=== PATIENT | male | born 1985 | race Caucasian/White ===

== ENCOUNTER 2016-11-02 09:00 | Emergency (ER) | payer MEDICAID ==
[2016-11-02 09:21] VITALS: TEMP 97.9
--- NOTE | 2016-11-02 09:38 | C.PDOC ---
History Of Present Illness 31 year old male presents to the ED with complaints of abdominal pain for " seven years" with pain worsening over the last few days. Patient states he has been seeing his PMD and "specialists." He was given pepcid and glycolax but pain returned months later. Patient notes pain radiates from left side of abdomen to chest. He denies fever, nausea, vomiting, or diarrhea. Time Seen by Provider: 11/02/16 09:38 Chief Complaint (Nursing): Abdominal Pain History Per: Patient History/Exam Limitations: no limitations Onset/Duration Of Symptoms: Persistent (seven years ), Worse Since ("few days" ) Location Of Pain/Discomfort: LUQ, LLQ Radiation Of Pain To:: Chest Quality Of Discomfort: "Pain" Associated Symptoms: denies: Fever, Chills, Nausea, Vomiting, Diarrhea Recent travel outside of the [place] States: No Past Medical History Reviewed: Historical Data, Nursing Documentation, Vital Signs Vital Signs: Last Vital Signs Temp 97.9 F 11/02/16 11:16 Pulse 72 11/02/16 11:16 Resp 20 11/02/16 11:16 BP 103/70 11/02/16 11:16 Pulse Ox 98 11/02/16 16:52 Family History: States: Unknown Family Hx - Social History Hx Tobacco Use: Yes Hx Alcohol Use: No Hx Substance Use: No - Immunization History Hx Tetanus Toxoid Vaccination: No Hx Influenza Vaccination: No Hx Pneumococcal Vaccination: No Review Of Systems Constitutional: Negative for: Fever, Chills Cardiovascular: Negative for: Chest Pain, Palpitations Respiratory: Negative for: Cough, Shortness of Breath Gastrointestinal: Positive for: Abdominal Pain (radiates to chest ). Negative for: Nausea, Vomiting, Diarrhea Physical Exam - Physical Exam Appears: Non-toxic, No Acute Distress Skin: Warm, Dry Head: Atraumatic Eye(s): bilateral: Normal Inspection Oral Mucosa: Moist Neck: Supple Chest: Symmetrical, No Deformity Cardiovascular: Rhythm Regular Respiratory: Normal Breath Sounds, No Rales, No Rhonchi, No Wheezing Gastrointestinal/Abdominal: Soft, No Tenderness, No Distention, No Guarding, No Rebound Neurological/Psych: Oriented x3, Normal Speech, Normal Cognition, Normal Motor, Normal Sensation ED Course And Treatment - Laboratory Results Result Diagrams: 11/02/16 10:15 11/02/16 10:15 ECG: Interpreted By Me, Viewed By Me ECG Rhythm: Sinus Rhythm Rate From EC O2 Sat by Pulse Oximetry: 98 (room air ) - Radiology CXR: Viewed By Me, Read By Radiologist CXR Interpretation: Yes: Other (No definite acute infiltrate. Cardiac silhouette is somewhat prominent may be magnified by technique. Clinically correlate.) Progress Note: EKG,CXR, UA, and blood work was ordered. Patient was given Maalox , Pepcid, Lidocaine 2%, and IV fluids. Disposition - Disposition Referrals: Kamran Walden [Staff Provider] - Disposition: HOME/ ROUTINE Disposition Time: 11:21 Condition: GOOD Additional Instructions: Please follow up with your doctor and also with the GI specialist. Return to the ER for any worsening symptoms or for any other concerns. Prescriptions: Sucralfate [Carafate Oral Susp] 1 gm PO TID #6 dose Instructions: Diet for Ulcers and Gastritis (ED) Forms: General Discharge Instructions, [facility] ([place]) - Clinical Impression Clinical Impression: Abdominal pain - Scribe Statement The provider has reviewed the documentation as recorded by the Scribgreg Quinones All medical record entries made by the Scribe were at my direction and personally dictated by me. I have reviewed the chart and agree that the record accurately reflects my personal performance of the history, physical exam, medical decision making, and the department course for this patient. I have also personally directed, reviewed, and agree with the discharge instructions and disposition.
[2016-11-02] MEDS ORDERED: Aluminum Hydroxide/Magnesium Hydroxide Susp (30 mL) PO STA (09:53)
[2016-11-02] MEDS ORDERED: Aluminum Hydroxide/Magnesium Hydroxide Susp (30 mL) ONE (09:59)
[2016-11-02] MEDS ORDERED: Sodium Chloride 0.9% 1,000 ML ONE (09:59)
[2016-11-02] MEDS ORDERED: Sodium Chloride 0.9% 1,000 ML IV SCH (10:00)
[2016-11-02 10:20] LABS: BASO # 0.1 K/uL (0.0-0.2); EOS # 0.3 K/uL (0.0-0.7); LYMPH # 2.1 K/uL (1.0-4.3); MEAN CORPUSCULAR HEMOGLOBIN 27.9 pg (27.0-31.0); MONO # 0.4 K/uL (0.0-0.8); WHITE BLOOD COUNT 4.6 K/uL (4.8-10.8)
[2016-11-02 10:24] LABS: BASO % 1.2 % (0.0-2.0); EOS % 5.8 % (0.0-4.0); HEMATOCRIT 46.5 % (35.0-51.0); LYMPH % 45.2 % (20.0-40.0); MEAN CELL VOLUME 79.9 fL (80.0-94.0); MEAN CORPUSCULAR HGB CONC 34.9 g/dL (33.0-37.0); MEAN PLATELET VOLUME 7.6 fL (7.2-11.7); MONO % 9.1 % (0.0-10.0); NRBC % 0.4 % (0.0-2.0); RED CELL DISTRIBUTION WIDTH 13.5 % (11.5-14.5)
[2016-11-02 10:29] LABS: URINE BILIRUBIN NEGATIVE (NEGATIVE); URINE BLOOD NEGATIVE (NEGATIVE); URINE COLOR Yellow (YELLOW); URINE GLUCOSE (UA) NORMAL (Normal); URINE KETONE NEGATIVE (NEGATIVE); URINE LEUKOCYTE ESTERASE NEG Leu/uL (Negative); URINE PROTEIN NEGATIVE (NEGATIVE); URINE UROBILINOGEN NORMAL mg/dL (0.2-1.0); WBC URINE < 1 /hpf (0-5)
[2016-11-02 10:32] LABS: ALB/GLOB RATIO 1.2 (1.0-2.1); ALKALINE PHOSPHATASE 73 U/L (38-126); ALT/SGPT 91 U/L (21-72); AST/SGOT 43 U/L (17-59); BILIRUBIN,TOTAL 2.2 mg/dL (0.2-1.3); BLOOD UREA NITROGEN 12 mg/dL (9-20); CALCIUM 9.6 mg/dl (8.6-10.4); CARBON DIOXIDE 22 mmol/L (22-30); CHLORIDE 103 mmol/L (98-107); GFR AFRICAN-AMERICAN > 60; GLUCOSE,RANDOM 97 mg/dL (75-110); POTASSIUM 4.3 mmol/L (3.6-5.2); SODIUM 139 mmol/L (132-148); TOTAL PROTEIN 7.5 g/dL (6.3-8.3)
[2016-11-02 11:17] VITALS: BP 103/70; PULSE 72; RESP 20
--- NOTE | 2016-11-02 11:43 | RAD ---
HISTORY: cp COMPARISON: No prior. FINDINGS: LUNGS: No active pulmonary disease. PLEURA: No significant pleural effusion identified, no pneumothorax apparent. CARDIOVASCULAR: Cardiac silhouette appears somewhat prominent and may be magnified by technique. Clinically correlate. OSSEOUS STRUCTURES: No significant abnormalities. VISUALIZED UPPER ABDOMEN: Normal. OTHER FINDINGS: None. IMPRESSION: No definite acute infiltrate. Cardiac silhouette is somewhat prominent may be magnified by technique. Clinically correlate.
[2016-11-02 16:52] VITALS: O2SAT 98
--- NOTE | 2016-11-04 00:32 | CARD ---
APPROVED REPORT EKG Measurement Heart [id number] <Conclusion> Normal sinus rhythm Low voltage QRS Borderline ECG
== END 2016-11-02 11:21 | disposition home or self-care (01) ==
LOC: C.ER 09:00
DX: R10.12 Left upper quadrant pain (principal)
CPT/HCPCS: 71010; 80053; 81001; 83690; 84484; 85025; 93005; 96374; 99285; J7040

== ENCOUNTER 2017-09-12 11:36 | Emergency (ER) | payer MEDICAID ==
[2017-09-12 11:55] VITALS: BMI 35.4
[2017-09-12 11:57] VITALS: RESP 18; TEMP 98.4
--- NOTE | 2017-09-12 12:25 | C.PDOC ---
History Of Present Illness 32 year old male patient presents to the ER with complaints of CHILDERS on both sides of the head that lasted for 3 days. Patient reports that he took advil yesterday afternoon, which gave him transient relief. (+) nausea. Patient also c /o left dental cavities x 1 yr which have increased in pain recently. Denies visual changes, weakness, neck pain, chest pain, abdominal pain, diplopia, trauma, and fever. 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[employer]) History/Exam Limitations: no limitations Onset/Duration Of Symptoms: Days Current Symptoms Are (Timing): Still Present Quality: Sharp Associated Symptoms: Nausea Past Medical History Reviewed: Historical Data, Nursing Documentation, Vital Signs Vital Signs: Last Vital Signs Temp 98.4 F 09/12/17 11:56 Pulse 70 09/12/17 14:28 Resp 18 09/12/17 14:28 BP 106/73 09/12/17 14:28 Pulse Ox 97 09/12/17 14:28 - Medical History PMH: Gastrointestinal Ulcer Surgical History: Endoscopy Other Surgeries: Colonoscopy Family History: States: Unknown Family Hx - Social History Hx Tobacco Use: Yes Hx Alcohol Use: No Hx Substance Use: No - Immunization History Hx Tetanus Toxoid Vaccination: No Hx Influenza Vaccination: No Hx Pneumococcal Vaccination: No Review Of Systems Except As Marked, All Systems Reviewed And Found Negative. Constitutional: Negative for: Fever, Weakness Eyes: Positive for: Pain (left eye). Negative for: Vision Change Gastrointestinal: Positive for: Nausea. Negative for: Vomiting Physical Exam - Physical Exam Appears: Well, Non-toxic, No Acute Distress Skin: Normal Color, Warm, Dry Head: Atraumatic, Normacephalic, Tenderness (frontal sinus tenderness) Eye(s): bilateral: Normal Inspection, PERRL, EOMI Ear(s): Bilateral: Normal Nose: Normal, No Septal Hematoma Oral Mucosa: Moist Teeth: No Normal Dentition (poor dentition), Caries (multiple caries; tenderness to left maxillary pre molar) Gingiva: No Erythema, No Swelling, Tender (left maxiallary premolar) Throat: Normal, No Erythema, No Exudate Neck: Normal, Normal ROM, Supple Chest: Symmetrical Cardiovascular: Rhythm Regular Respiratory: Normal Breath Sounds, No Accessory Muscle Use Extremity: Normal ROM Neurological/Psych: Oriented x3, Normal Speech, Normal Cognition, Normal Cranial Nerves (2-12 grossly intact), Normal Sensation, No Other (focal deficits ) Gait: Steady ED Course And Treatment O2 Sat by Pulse Oximetry: 96 (RA) Pulse Ox Interpretation: Normal - CT Scan/US head Other Rad Studies (CT/US): Read By Radiologist, Radiology Report Reviewed CT/US Interpretation: No acute intracranial abnormality. Sinus mucosal disease. Progress Note: Impression: 32 year old male patient with headache. Plan: -- CT head w/o contrast. -- IV fluids. -- Toradol. -- Zofran. -- CT of head. Reassess: Patient is resting comfortably, is tolerating PO. Patient has no neurologic deficit, photophobia, rash, fever, or nuchal rigidity. Patient was instructed to follow up with physician/clinic in 1-2 days. Disposition - Disposition Disposition: HOME/ ROUTINE Disposition Time: 13:55 Condition: STABLE Additional Instructions: Follow up with the your doctor and dentist in 1-2 days. Return to ER if symptoms persist or worsen. Prescriptions: Clindamycin [Cleocin] 300 mg PO Q6 #28 cap Naproxen [Naprosyn] 1 tab PO BID PRN #20 tab PRN Reason: Pain Instructions: Dental Pain (DC) Forms: [facility] ([place]otho) - Clinical Impression Clinical Impression: Pain, dental, Headache - PA / INTERNAL COMBUSTION ENGINEER / Resident Statement MD/DO has reviewed & agrees with the documentation as recorded. - Scribe Statement The provider has reviewed the documentation as recorded by the Gil Bhandari Do All medical record entries made by the Scribe were at my direction and personally dictated by me. I have reviewed the chart and agree that the record accurately reflects my personal performance of the history, physical exam, medical decision making, and the department course for this patient. I have also personally directed, reviewed, and agree with the discharge instructions and disposition.
[2017-09-12] MEDS ORDERED: Sodium Chloride 0.9% 1,000 ML IV ONE (12:28)
[2017-09-12] MEDS ORDERED: Sodium Chloride 0.9% 1,000 ML ONE (12:39)
--- NOTE | 2017-09-12 13:40 | CT ---
Date of service: 09/12/2017 PROCEDURE: CT HEAD WITHOUT CONTRAST. HISTORY: Headache. Evaluate for hemorrhage. COMPARISON: None available. TECHNIQUE: Axial computed tomography images were obtained through the head/brain without intravenous contrast. Radiation dose: Total exam DLP = 834 mGy-cm. This CT exam was performed using one or more of the following dose reduction techniques: Automated exposure control, adjustment of the mA and/or kV according to patient size, and/or use of iterative reconstruction technique. FINDINGS: HEMORRHAGE: No intracranial hemorrhage. BRAIN: No mass effect or edema. No atrophy or chronic microvascular ischemic changes. VENTRICLES: Unremarkable. No hydrocephalus. CALVARIUM: Unremarkable. PARANASAL SINUSES: Mucosal thickening of the ethmoid air cells. MASTOID AIR CELLS: Unremarkable as visualized. No inflammatory changes. OTHER FINDINGS: None. IMPRESSION: No acute intracranial abnormality. If symptoms persists, consider correlation with MRI. Sinus mucosal disease.
[2017-09-12 14:30] VITALS: BP 106/73; PULSE 70
[2017-09-12 18:59] VITALS: O2SAT 96
== END 2017-09-12 14:30 | disposition home or self-care (01) ==
LOC: C.ER 11:36
DX: R51 Headache (principal); K08.89 Other specified disorders of teeth and supporting structures; Z72.0 Tobacco use
CPT/HCPCS: 70450; 96361; 96374; 96375; 99284; J1885; J2405; J7030

== ENCOUNTER 2018-04-17 11:58 | Emergency (ER) | payer MEDICAID ==
[2018-04-17 11:58] VITALS: BMI 35.4
[2018-04-17 12:03] VITALS: RESP 20
[2018-04-17] MEDS ORDERED: Albuterol-Ipratrop 3 mg / 0.5 (3 ml) UD IH STA (13:08)
--- NOTE | 2018-04-17 13:13 | RAD ---
Date of service: 04/17/2018 HISTORY: cough, bloody sputum COMPARISON: Comparison is made with 11/02/2016 TECHNIQUE: Chest PA and lateral FINDINGS: LUNGS: No evidence of new infiltrate or consolidation in the lungs. Suboptimal study due to the patient's body habitus. PLEURA: No significant pleural effusion identified. No pneumothorax apparent. CARDIOVASCULAR: No aortic atherosclerotic calcification present. Normal cardiac size. No pulmonary vascular congestion. OSSEOUS STRUCTURES: No significant abnormalities. VISUALIZED UPPER ABDOMEN: Normal. OTHER FINDINGS: None. IMPRESSION: No definite radiographic evidence of pneumonia.
[2018-04-17] MEDS ORDERED: Albuterol-Ipratrop 3 mg / 0.5 (3 ml) UD ONE (13:17)
--- NOTE | 2018-04-17 13:48 | C.PDOC ---
History Of Present Illness 33 year old male presents to ED with complaint of cough and mucus that is yellow and blood tinged in nature for the past 2 days. Patient reports experiencing chest discomfort when he coughs. He denies fever, numbness,weakness, and SOB. Time Seen by Provider: 04/17/18 12:17 Chief Complaint (Nursing): Cough, Cold, Congestion History Per: Patient History/Exam Limitations: no limitations Onset/Duration Of Symptoms: Days (2) Current Symptoms Are (Timing): Still Present Associated Symptoms: Cough, Sputum (yellow and blood-tinged mucus), Other (chest discomfort). denies: Fever Past Medical History Reviewed: Historical Data, Nursing Documentation, Vital Signs Vital Signs: Last Vital Signs Temp 97.8 F 04/17/18 12:00 Pulse 71 04/17/18 12:00 Resp 20 04/17/18 12:00 BP 105/66 04/17/18 12:00 Pulse Ox 99 04/17/18 12:00 - Medical History PMH: Gastrointestinal Ulcer Surgical History: Endoscopy Family History: States: Unknown Family Hx - Social History Hx Tobacco Use: Yes Hx Alcohol Use: No Hx Substance Use: No - Immunization History Hx Tetanus Toxoid Vaccination: No Hx Influenza Vaccination: No Hx Pneumococcal Vaccination: No Review Of Systems Except As Marked, All Systems Reviewed And Found Negative. Constitutional: Negative for: Fever, Chills, Weakness ENT: Positive for: Other (yellow and blood tinged mucus) Cardiovascular: Positive for: Other (chest discomfort when coughing). Negative for: Palpitations Respiratory: Positive for: Cough. Negative for: Shortness of Breath Gastrointestinal: Negative for: Nausea, Vomiting, Abdominal Pain Neurological: Negative for: Weakness, Numbness, Dizziness Physical Exam - Physical Exam Appears: Well, Non-toxic, No Acute Distress Skin: Normal Color, Warm, Dry, No Rash Head: Atraumatic, Normacephalic Eye(s): bilateral: Normal Inspection, PERRL, EOMI Ear(s): Bilateral: Normal Nose: Normal, No Discharge Oral Mucosa: Moist Throat: No Erythema, No Exudate Neck: Normal ROM, Supple Chest: Symmetrical, No Deformity Cardiovascular: Rhythm Regular, No Friction Rub, No Murmur Respiratory: Normal Breath Sounds, No Accessory Muscle Use, No Rales, No Rhonchi, No Stridor, No Wheezing Gastrointestinal/Abdominal: Soft, No Tenderness Back: Normal Inspection, No CVA Tenderness Extremity: No Tenderness, Capillary Refill (<2 seconds), No Swelling Extremity: Bilateral: Atraumatic, Normal Color And Temperature Pulses: Left Radial: Normal, Right Radial: Normal Neurological/Psych: Oriented x3, Normal Speech, Normal Cognition, Normal Motor Gait: Steady ED Course And Treatment ECG: Interpreted By Me, Viewed By Me ECG Rhythm: Sinus Rhythm ECG Interpretation: Normal Rate From EC O2 Sat by Pulse Oximetry: 99 - Other Rad CXR X-Ray: Interpreted by Me, Viewed By Me Interpretation: Accession No. : [id number]. Patient Name / ID : DORYS SAUL / [id number]. Exam Date : 04/17/2018 12:40:56 ( Approved ). Study Comment : Sex / Age : M / 33Y. Creator : Mart Brian MD. Dictator : Mart Brian MD. Hose Finisher : Sugar Sampler : Mart Brian MD. Approver2 : Report Date : 04/17/2018 13:09:58. My Comment : . Date of service: 04/17/2018. HISTORY: cough, bloody sputum. COMPARISON: Comparison is made with 11/02/2016. TECHNIQUE: Chest PA and lateral. FINDINGS: LUNGS: No evidence of new infiltrate or consolidation in the lungs. Suboptimal study due to the patient's body habitus. PLEURA: No significant pleural effusion identified. No pneumothorax apparent. CARDIOVASCULAR: No aortic atherosclerotic calcification present. Normal cardiac size. No pulmonary vascular congestion. OSSEOUS STRUCTURES: No significant abnormalities. VISUALIZED UPPER ABDOMEN: Normal. OTHER FINDINGS: None. IMPRESSION: No definite radiographic evidence of pneumonia. Progress Note: EKG and CXR ordered for patient. Patient given Duoneb IH. Medical Decision Making Medical Decision Making: On re-exam, the patient reports improvement of symptoms. Lungs are CTA, heart is RRR, abdomen is soft, non-tender and tolerating PO well. Ambulatory in the ED with steady gait. Follow up with the medical doctor within 1-2 days. Return if worsened. Disposition - Disposition Referrals: Shabana Laird MD [Staff Provider] - Disposition: HOME/ ROUTINE Disposition Time: 14:23 Condition: GOOD Additional Instructions: Follow up with the medical doctor within 1-2 days. Return if worsened. Prescriptions: Azithromycin [Zithromax] 250 mg PO DAILY #6 tab Benzonatate 200 mg PO TID PRN #30 capsule PRN Reason: Cough Ibuprofen [Motrin] 1 tab PO TID PRN #30 tab PRN Reason: Pain predniSONE [Prednisone] 20 mg PO BID #10 tab Instructions: Acute Bronchitis Forms: [facility] ([place]zeri) - Clinical Impression Clinical Impression: Bronchitis - PA / ADMINISTRATIVE SUPPORT COORDINATOR / Resident Statement MD/DO has reviewed & agrees with the documentation as recorded. (Wen Lim) - Scribe Statement The provider has reviewed the documentation as recorded by the Scribe (Wen Lim) All medical record entries made by the Scribe were at my direction and personally dictated by me. I have reviewed the chart and agree that the record accurately reflects my personal performance of the history, physical exam, medical decision making, and the department course for this patient. I have also personally directed, reviewed, and agree with the discharge instructions and disposition.
[2018-04-17 14:14] VITALS: BP 97/64; PULSE 74; TEMP 97.5
[2018-04-17 14:23] VITALS: O2SAT 99
--- NOTE | 2018-04-19 23:59 | CARD ---
APPROVED REPORT Date of service: 04/17/2018 EKG Measurement Heart [id number] <Conclusion> Normal sinus rhythm Normal ECG
== END 2018-04-17 14:35 | disposition home or self-care (01) ==
LOC: C.ER 11:58
DX: J40 Bronchitis, not specified as acute or chronic (principal); Z87.891 Personal history of nicotine dependence